=== PATIENT | female | born 1950 | race Caucasian/White ===

== ENCOUNTER 2017-05-27 07:58 | Day surgery (SDC) | payer OTHER, MEDICAID ==
[~2017-05-27] VITALS: Ht 165.1 cm; Wt 70.1 kg
[2017-05-27] MEDS ORDERED: AMLO-145 PO (08:44)
[2017-05-27] MEDS ORDERED: LOSA25TA5 PO (08:44)
[2017-05-27 08:48] VITALS: Ht 165.1 cm; Wt 70.1 kg
[2017-05-27 09:37] VITALS: BP 147/68; PULSE 68; RESP 20
[2017-05-27] MEDS ORDERED: LIDOCAINE 2% (SDV) 5 ML INJ ONE (09:37)
[2017-05-27] MEDS ORDERED: PROPOFOL 60 ML ONE (09:37)
--- NOTE | 2017-05-27 10:55 | GILP ---
DATE OF PROCEDURE: NAME OF PROCEDURES: Colonoscopy, biopsy, polypectomy and clipping. SURGEON: Kaela Zhao MD PREOPERATIVE DIAGNOSIS: Positive occult blood in stool. POSTOPERATIVE DIAGNOSES 1. Colonoscopy all the way to the cecum. 2. Two large sigmoid colon polyps were removed using the snare and electrocautery. 3. Clipping of one of the polypectomy sites was done to prevent bleeding. 4. Small polyp on the ileocecal valve was removed with the biopsy forceps. 5. Diverticulosis of the colon. 6. Internal hemorrhoids. INDICATION FOR THE PROCEDURE: Ms. Ute Myers is a 67-year-old female patient who was scheduled fo r colonoscopy because she was noted to have positive occult blood in stool. The procedure and possible complications are well explained to the patient. The patient understood and consented to the procedure. DESCRIPTION OF PROCEDURE: Under the influence of anesthesia, the colonoscope was carefully introduc ed in the rectum and under direct vision, it was advanced all the way to the cecum. FINDINGS: The patient had 2 large polyps in the sigmoid colon and they were removed using the snare and electrocautery. Clipping of one of the polypectomy sites was done to prevent bleeding. The harjit narvaez also had a small polyp in the ileocecal valve and it was removed using the biopsy forceps. Sh e had diverticulosis of the colon and internal hemorrhoids. She tolerated the procedure very well and there was no complication from the procedure. At the end of the procedure, she was awake with stable vital signs and she was discharged home to the care of h er family. IMPRESSION: 1. Colonoscopy all the way to the cecum. 2. Two large sigmoid colon polyps were removed using the snare and electrocautery. 3. Clipping of one of the polypectomy sites was done to prevent bleeding. 4. Small polyp on the ileocecal valve and it was removed using the biopsy forceps. 5. Diverticulosis of the colon. 6. Internal hemorrhoids. PLAN: 1. Await histopathology reports. 2. Next screening colonoscopy in 5 years. Dictated By: KAELA AMATO/MEÑO Conf#: [id number] DID#: [id number]
== END 2017-05-27 11:50 | disposition home or self-care (01) ==
LOC: GIL 07:58
PROVIDERS: ATTEND Internal Medicine Gastroenterology
DX: K92.1 Melena (principal); D12.5 Benign neoplasm of sigmoid colon; K57.90 Diverticulosis of intestine, part unspecified, without perforation or abscess without bleeding; K64.8 Other hemorrhoids; D12.6 Benign neoplasm of colon, unspecified; I10 Essential (primary) hypertension
CPT/HCPCS: 88305

== ENCOUNTER 2017-09-03 07:06 | Day surgery (SDC) | END 2017-09-03 12:55 | disposition home or self-care (01) ==